=== PATIENT | male | born 1990 | race Caucasian/White ===

== ENCOUNTER 2018-06-02 18:27 | Emergency (ER) | payer OTHER ==
[2018-06-02] MEDS: diazePAM 10 MG TAB PO (20:48)
[2018-06-02] MEDS: KETOROLAC 60 MG/2 ML VIAL (J1885) IM (20:48)
== END 2018-06-02 21:04 | disposition home or self-care (01) ==
LOC: M ED 18:27
DX: S39.012A Strain of muscle, fascia and tendon of lower back, initial encounter (principal); X50.1XXA Overexertion from prolonged static or awkward postures, initial encounter; Y92.9 Unspecified place or not applicable; Y93.9 Activity, unspecified; Y99.1 Military activity
CPT/HCPCS: J1885

== ENCOUNTER → 2019-03-11 | Outpatient (CLI) | payer OTHER ==
[~2019-03-11] MED LIST: IBUP-1022 PO; SOMA350T PO
--- NOTE | 2019-03-11 16:12 | REP ---
Scrotal sonography: History: Right testalgia times 1 week. Tenderness to palpation over the posterior inferior aspect of the right testis. Findings: Testicular parenchyma is normal and homogeneous. Right testis measures 4.0 x 2.3 x 2.8 cm. Left testicular dimensions are 4.0 x 2.0 x 2.9 cm. There are small bilateral hydroceles. Epididymi are unremarkable. Testicular Doppler flow is normal. Resistive indices are 0.64 and 0.59 on the right and left respectively. There is no evidence of significant varicocele. Impression: No significant abnormality. Electronically Signed by Dawood June MD 03/11/2019 04:30 P
== END ==
LOC: M RAD 13:02
PROVIDERS: ATTEND Physician Assistant
DX: N50.819 Testicular pain, unspecified (principal)

== ENCOUNTER 2019-04-12 08:53 | Emergency (ER) | payer OTHER ==
[~2019-04-12] VITALS: Ht 177.8 cm; Wt 85.5 kg
--- NOTE | 2019-04-12 09:46 | REP ---
Right knee five views : There is no fracture or dislocation. Mineralization and joint spaces are normal. There are no calcifications or foreign bodies. Impression: Negative right knee . Electronically Signed by Negrito Hagen MD 04/12/2019 09:37 A
[2019-04-12 10:28] VITALS: BP 144/70
== END 2019-04-12 10:37 | disposition home or self-care (01) ==
LOC: M ED 08:53
DX: M25.561 Pain in right knee (principal)